=== PATIENT | female | born 1970 | race Caucasian/White ===

== ENCOUNTER 2023-09-19 09:59 | Inpatient (IN) ==
--- NOTE | 2023-09-19 11:41 | XRay Report ---
XR chest 1V not portable HISTORY: 53 years-old Female stroke alert acute stroke like symptoms COMPARISON: None TECHNIQUE: AP view of the chest FINDINGS: Cervical spinal fusion hardware. Bones appear grossly intact. No pneumothorax, pleural effusion or ai rspace consolidation. The cardiomediastinal and hilar silhouettes are within normal limits. IMPRESSION: No acute process of the chest. ACT 112: Negative or not required by law. The above report was generated using voice recognition software. It may contain grammatical, syntax o r spelling errors. Electronically signed by: Helio Yu M.D. 09/19/2023 11:38 AM
--- NOTE | 2023-09-19 11:45 | CT Scan Report ---
CT head/brain wo con CLINICAL HISTORY: 53 years-old Female with Neuro deficit, acute, stroke suspected. Acute stroke like symptoms TECHNIQUE: Multiple axial CT images of the head were obtained without contrast. A dose lowering tech nique was utilized adhering to the principles of ALARA. CT DOSE: 657.02 mGy.cm COMPARISON: None. FINDINGS: No acute intracranial hemorrhage, midline shift, intracranial mass, hydrocephalus, territorial ischem ia or abnormal extra-axial collection. Ill-defined 1.7 cm hypodense focus within the left frontal lob e sapp radiata/posterior limb of the internal capsule on image 15 series 2. Francisco Javier cisterna magna. The calvarium is intact. The paranasal sinuses, mastoid air cells, and middle ear cavities are clear . IMPRESSION: 1. No acute intracranial hemorrhage, midline shift or acute territorial infarct. 2. Ill-defined 1.7 cm hypodense focus within the left frontal lobe sapp radiata/posterior limb of t he internal capsule suggestive of an age-indeterminate infarct. ACT 112: Negative or not required by law. The above report was generated using voice recognition software. It may contain grammatical, syntax o r spelling errors. Electronically signed by: Helio Yu M.D. 09/19/2023 11:43 AM
[2023-09-19] MEDS ORDERED: ASPIRIN CHEW 324 MG PO STA (12:08)
--- NOTE | 2023-09-19 12:15 | Emergency Department Note ---
Impression & Plan Acute CVA (cerebrovascular accident), Right sided weakness, Dizziness, Ambulatory dysfunction ED Provider Note NAME: PENNIE MIRELES AGE: 53 SEX: F : 1970 ARRIVES VIA: Walk-In INFORMANT: [Patient] ED PROVIDER(S): [Eber Bauman MD] CHIEF COMPLAINT: Neuro symptoms HISTORY OF PRESENT ILLNESS: The patient is a 53-year-old female who states that 3 days ago, she went to stand and fell. She felt weak and off balance, primarily her right leg seemed affected. The patient had consumed a white [place] and had a CBD gummy and felt that the symptoms she was experiencing were from what she had ingested. The next day, she felt very similar and her symptoms have persisted over the last few days. No real headache, no head trauma. No fever, chills, cough or congestion. No urinary complaints. Patient feels at times that her right leg drags behind her, she has dropped things with her right hand. The patient has never had a stroke, no history of TIA. She is not on blood thinning agents. PMHx/PSHx/Social Hx: See Below PHYSICAL EXAM: GENERAL: Patient is in no acute distress. HEENT: No acute trauma, normocephalic atraumatic, mucous membranes moist, no nasal congestion. NECK: No stridor, no adenopathy, no meningismus, trachea is midline. LUNGS: Clear to auscultation bilaterally, no wheeze, no rhonchi, breath sounds equal. HEART: Without murmurs gallops or rubs, regular rate and rhythm. ABDOMEN: Soft, nontender, no peritonitis. EXTREMITIES: No cyanosis, full range of motion of all the joints without pain or difficulty. NEUROLOGIC: Oriented x 3. No facial droop or speech slur. Excellent historian. She has no upper extremity drift. No lower extremity drift however, the right leg is weaker when she lifts it off the bed. She has cerebellar dysfunction in the right upper extremity and right lower extremity. SKIN: No jaundice, no diaphoresis. DIFFERENTIAL DIAGNOSIS: Stroke, TIA, medication reaction, electrolyte imbalance, anemia, intracranial bleeding, intracranial mass, among others. EMERGENCY DEPARTMENT PROCEDURES: MEDICAL DECISION MAKING: There is no leukocytosis or concerning anemia. There is a normal platelet count. No coagulopathy. No renal failure or significant electrolyte abnormality. No concerning liver enzyme elevation. Brain CT imaging shows a left frontal stroke thought subacute. On exam, the patient had cerebellar dysfunction in the right upper and lower extremities. Her right leg was weaker compared to her left. No speech slur. Patient was ordered for 324 mg of oral aspirin. The patient had CT angios of the neck and brain, there was no clot or significant stenosis seen. The patient has had a small stroke. The findings on CT imaging explain the neurologic deficits noted on exam. The patient was told the results of her testing, she understands the need for hospitalization. I did speak with the case management team, the on-call hospitalist was consulted. Of note, the patient is not a TNK candidate as her symptoms have been ongoing for around 4 days. Prior/Outside records/notes reviewed: ECG per my interpretation: Indication was possible stroke. The ECG showed a normal sinus rhythm with a rate of 82. There was some nonspecific ST change with some T wave inversions in a few of the high lateral leads. There was no ST elevation, no PVCs. The QTc was 446. Continuous Cardiac Monitoring per my interpretation: An order was placed for continuous cardiac monitoring. The monitor shows a rate of 89 with normal sinus rhythm. Imaging/x-ray results per my interpretation: Chronic Medical/Social conditions affecting care: Care/Management discussed with: Case management, the on-call hospitalist. Level of care consideration(s): After review of the information above and other included data: --I believe the patient requires escalation of care to admission DISPOSITION: Admission Past Med/Surg History Medical History (Updated 09/19/23 @ 14:08 by ALBERTO Shea) Rheumatoid arthritis GERD (gastroesophageal reflux disease) Depression Hypothyroidism HTN (hypertension) Stroke-like symptoms Surgical History (Updated 09/19/23 @ 14:05 by ALBERTO Shea) S/P cubital tunnel release Family History (Updated 09/19/23 @ 14:06 by ALBERTO Shea) Father Diabetes Mother Hypertension Social History Smoking Status: Never smoker Preferred Language: Norwegian Feels Safe at Home: Yes Home Meds Home Medications Medication Instructions Recorded Confirmed duloxetine 20 mg capsule,delayed 20 mg PO BID 09/19/23 09/19/23 release (Cymbalta) levothyroxine 125 mcg tablet 125 mcg PO DAILY 09/19/23 09/19/23 (Synthroid) lisinopril 10 mg tablet 10 mg PO DAILY 09/19/23 09/19/23 omeprazole 20 mg capsule,delayed 20 mg PO DAILY 09/19/23 09/19/23 release vitamin B complex-vit B12 PO 09/19/23 Results & Data (ED) Vital Signs Vital Signs - 24 hr 09/19/23 11:00 09/19/23 12:13 09/19/23 12:15 Temperature 37.0 C Temperature Source Temporal Artery Scan Pulse Rate 89 Pulse Rate [Left Finger] 88 Pulse Rhythm Regular Pulse Strength Normal Respiratory Rate 20 14 Respiratory Effort / Characteristics Non-Labored Spontaneous Non-Labored Respiratory Depth Normal Normal Respiratory Pattern Regular Blood Pressure 147/103 H Blood Pressure [Left Arm] 169/96 H Blood Pressure Mean 117 Blood Pressure Mean [Left Arm] 120 Blood Pressure Position Sitting Pulse Oximetry 100 98 Oxygen Delivery Method Room Air Room Air Room Air Sepsis Recent Fever Within 48 Hours No Sepsis New/Unexplained Change in Mental Status No Sepsis Action Taken by Nursing No Action Required Home Medications Current Medication List: was personally reviewed by me Laboratory Data Attestation: I reviewed the patient's lab results. 09/19/23 11:53 09/19/23 11:53 Lab Results 09/19/23 Range/Units 11:53 WBC 7.62 (4.8-10.8) K/ul RBC 4.54 (4.20-5.40) M/uL Hgb 13.9 (12.0-16.0) g/dl Hct 41.6 (37.0-47.0) % MCV 91.6 (80.0-100.0) fL MCH 30.6 (25.0-34.0) pg MCHC 33.4 (32.0-36.0) g/dL RDW Std Deviation 42.8 (36.4-46.3) fL RDW Coeff of Hayden 12.9 (11.5-14.5) % Plt Count 344 (130-400) K/uL MPV 9.0 L (9.4-12.4) fL PT 10.1 (9.0-12.0) Seconds INR 0.9 (0.9-1.1) APTT 27 (21-31) Seconds PTT Ratio 1.0 Sodium 139 (136-145) mmol/L Potassium 3.8 (3.5-5.1) mmol/L Chloride 102 (98-107) mmol/L Carbon Dioxide 27 (21-32) mmol/L Anion Gap 10 (3-11) BUN 22 (6-23) mg/dl Creatinine 1.11 (0.6-1.2) mg/dl Est Cr Clr Drug Dosing 60.0 ml/min Est GFR ( Amer) 65.7 ml/min Est GFR (Non-Af Amer) 56.7 ml/min BUN/Creatinine Ratio 19.8 (10-20) Glucose 140 H (70-99(Fasting)) mg/dl Calcium 10.2 (8.6-10.3) mg/dl Magnesium 1.9 (1.7-2.4) mg/dl Total Bilirubin 0.7 (0.2-1.0) mg/dl AST 17 (13-39) U/L ALT 17 (7-52) U/L Alkaline Phosphatase 68 (34-104) U/L Total Protein 8.0 (6.0-8.3) gm/dl Albumin 4.7 (3.4-5.0) gm/dl Globulin 3.3 (2.5-4.0) gm/dl Albumin/Globulin Ratio 1.4 (0.9-2) Administered Medications Discontinued Medications Aspirin (Aspirin Chew 324 Mg) 324 mg PO NOW STA Stop: 09/19/23 12:09 Last Admin: 09/19/23 12:12 Dose: 324 mg Documented By: CLAUDE Ioversol (Optiray 320 125ml) 117 ml IV ONCE ONE Stop: 09/19/23 13:54 Last Admin: 09/19/23 13:54 Dose: 117 ml Documented By: BARON Imaging Data Radiologist's Impression: Chest X-Ray 09/19/23 11:05 XR chest 1V not portable HISTORY: 53 years-old Female stroke alert acute stroke like symptoms COMPARISON: None TECHNIQUE: AP view of the chest FINDINGS: Cervical spinal fusion hardware. Bones appear grossly intact. No pneumothorax, pleural effusion or airspace consolidation. The cardiomediastinal and hilar silhouettes are within normal limits. IMPRESSION: No acute process of the chest. ACT 112: Negative or not required by law. The above report was generated using voice recognition software. It may contain grammatical, syntax or spelling errors. Electronically signed by: Helio Yu M.D. 09/19/2023 11:[address] 09/19/23 11:05 CT head/brain wo con CLINICAL HISTORY: 53 years-old Female with Neuro deficit, acute, stroke suspected. Acute stroke like symptoms TECHNIQUE: Multiple axial CT images of the head were obtained without contrast. A dose lowering technique was utilized adhering to the principles of ALARA. CT DOSE: 657.02 mGy.cm COMPARISON: None. FINDINGS: No acute intracranial hemorrhage, midline shift, intracranial mass, hydrocephalus, territorial ischemia or abnormal extra-axial collection. Ill- defined 1.7 cm hypodense focus within the left frontal lobe sapp radiata/posterior limb of the internal capsule on image 15 series 2. Francisco Javier cisterna magna. The calvarium is intact. The paranasal sinuses, mastoid air cells, and middle ear cavities are clear. IMPRESSION: 1. No acute intracranial hemorrhage, midline shift or acute territorial infarct. 2. Ill-defined 1.7 cm hypodense focus within the left frontal lobe sapp radiata/posterior limb of the internal capsule suggestive of an age- indeterminate infarct. ACT 112: Negative or not required by law. The above report was generated using voice recognition software. It may contain grammatical, syntax or spelling errors. Electronically signed by: Helio Yu M.D. 09/19/2023 11:43 AM Head CTA 09/19/23 12:08 CT angio head w con, CT angio neck with con CLINICAL HISTORY: 53 years-old Female with stroke. Acute strokelike symptoms COMPARISON STUDY: Head CT of same day TECHNIQUE: Following the IV administration of 117 cc of Optiray, CT angiogram of the head and neck was performed from the regard to the skull apex. Images are reviewed in the axial, sagittal, and coronal planes. 3-D MIPS images are created and assessed. IV contrast was administered without complication. All measurements were obtained according to NASCET criteria. A dose lowering technique was utilized adhering to the principles of ALARA. CT DOSE: 462.28 mGy.cm FINDINGS: CT ANGIOGRAM OF THE HEAD AND NECK: Three-vessel morphology of the thoracic aortic arch. Patent common and internal carotid arteries. The bilateral anterior and middle cerebral arteries are also patent. The vertebrobasilar system and posterior cerebral arteries are widely patent. There is no aneurysm, high-grade stenosis, or proximal branch occlusion identified. Dural sinuses appear patent. Ill-defined 1.7 cm hypodensity within the left basal ganglia again noted. Degenerative and postoperative changes of the cervical spine. Lung apices appear clear. Unremarkable soft tissues. IMPRESSION: Unremarkable CTA of the head and neck. ACT 112: Negative or not required by law. The above report was generated using voice recognition software. It may contain grammatical, syntax or spelling errors. Electronically signed by: Helio Yu M.D. 09/19/2023 2:26 PM Neck CTA 09/19/23 12:08 CT angio head w con, CT angio neck with con CLINICAL HISTORY: 53 years-old Female with stroke. Acute strokelike symptoms COMPARISON STUDY: Head CT of same day TECHNIQUE: Following the IV administration of 117 cc of Optiray, CT angiogram of the head and neck was performed from the regard to the skull apex. Images are reviewed in the axial, sagittal, and coronal planes. 3-D MIPS images are created and assessed. IV contrast was administered without complication. All measurements were obtained according to NASCET criteria. A dose lowering technique was utilized adhering to the principles of ALARA. CT DOSE: 462.28 mGy.cm FINDINGS: CT ANGIOGRAM OF THE HEAD AND NECK: Three-vessel morphology of the thoracic aortic arch. Patent common and internal carotid arteries. The bilateral anterior and middle cerebral arteries are also patent. The vertebrobasilar system and posterior cerebral arteries are widely patent. There is no aneurysm, high-grade stenosis, or proximal branch occlusion identified. Dural sinuses appear patent. Ill-defined 1.7 cm hypodensity within the left basal ganglia again noted. Degenerative and postoperative changes of the cervical spine. Lung apices appear clear. Unremarkable soft tissues. IMPRESSION: Unremarkable CTA of the head and neck. ACT 112: Negative or not required by law. The above report was generated using voice recognition software. It may contain grammatical, syntax or spelling errors. Electronically signed by: Helio Yu M.D. 09/19/2023 2:26 PM Discharge Plan Visit Data Chief Complaint: Neuro Symptoms/Deficit Stated Complaint: RIGHT SIDE DIFFICULTY WALKING X 3 DAYS ED Provider: Eber Bauman Discharge Problem: Acute CVA (cerebrovascular accident), Right sided weakness, Dizziness, Ambulatory dysfunction Patient Disposition: Admitted As Inpatient Condition: Fair Discharge Instructions Interventions: ED Discharge Assessment Last Done: 09/19/23 14:09
[2023-09-19 12:16] LABS: Hematocrit (blood only) 41.6 % (37.0-47.0); Hemoglobin 13.9 g/dl (12.0-16.0); Mean Corpuscular Hemoglobin 30.6 pg (25.0-34.0); Mean Corpuscular Hgb Conc 33.4 g/dL (32.0-36.0); Mean Corpuscular Volume 91.6 fL (80.0-100.0); Platelet Count 344 K/uL (130-400); RDW Coefficient of Variation 12.9 % (11.5-14.5); RDW Standard Deviation 42.8 fL (36.4-46.3); Red Blood Count 4.54 M/uL (4.20-5.40); White Blood Count 7.62 K/ul (4.8-10.8)
[2023-09-19 12:30] LABS: Albumin Globulin Ratio 1.4 (0.9-2); Albumin Level 4.7 gm/dl (3.4-5.0); BUN Creatinine Ratio 19.8 (10-20); Bilirubin,Total 0.7 mg/dl (0.2-1.0); Calcium 10.2 mg/dl (8.6-10.3); Est GFR (African American) 65.7 ml/min; Est GFR (Non-African American) 56.7 ml/min; Globulin 3.3 gm/dl (2.5-4.0); Magnesium 1.9 mg/dl (1.7-2.4); Potassium 3.8 mmol/L (3.5-5.1)
[2023-09-19] MEDS ORDERED: ONDANSETRON INJ 2 MG/ML 2 ML VIAL IV PRN (12:37)
[2023-09-19] MEDS ORDERED: ALUMINUM/MAGNESIUM SUSP 30 ML UDC PO PRN (12:37)
[2023-09-19] MEDS ORDERED: POLYETHYLENE (MIRALAX) 17 GM PACK PO PRN (12:37)
[2023-09-19] MEDS ORDERED: MAGNESIUM HYDROXIDE SUSP 30 ML UDC PO PRN (12:37)
--- NOTE | 2023-09-19 12:41 | History & Physical Report ---
Date of Service September 19, 2023 Assessment & Plan (1) Stroke-like symptoms: (2) HTN (hypertension): (3) Hypothyroidism: (4) Depression: (5) GERD (gastroesophageal reflux disease): (6) Rheumatoid arthritis: Plan Ms. Miller is a 53 year old female that presented to the ED today with R sided weakness. Last known well 09/160. Reports she took a CBD gummy (not unusual for her) and went to stand and could not 'find her feet' went to bed thinking it was the gummy. She went to bed and then woke again on 09/17 with the same symptoms and reports having to hold herself up to walk. Her reports that her right foot was dragging. No facial droop or speech slur. no upper extremity drift. No lower extremity drift. R leg weaker when comparing to left indicating cerebellar dysfunction. Recently Dx HTN as an outpatient and started on Lisinopril 10 mg a few months ago. She receives all of her care with the [facility] system in [facility]. No history of CVA or TIA. Additional PMH includes hypothyroidism, HTN, depression, rheumatoid arthritis, GERD, cubital tunnel surgery, and right carpal tunnel. Head CT: Ill-defined 1.7 cm hypodense focus within the left frontal lobe sapp radiata/posterior limb of the internal capsule suggestive of an age-indeterminate infarct. No Leukocytosis, no lab abnormalities. She was loaded with ASA 324 here in the ED. No known family history of stroke. Father known DM2, mother with known HTN. denies tobacco, alcohol use or recreational drug use. She did have a medical marijuana card for rheumatoid arthritis, but it has and she only used it a few times. Suspect patient had an acute CVA. Will continue imaging work up with head/neck CTA, MRI brain without con, ECHO, lab work up including TSH, A1C, Fasting lipid panel, homocysteine levels, PT/OT/ST, baby aspirin daily, high dose statin, hold anti-HTN for now for permissive HTN and Neurology consultation. Strokelike symptoms: Acute Head CT: Ill-defined 1.7 cm hypodense focus within the left frontal lobe sapp radiata/posterior limb of the internal capsule suggestive of an age- indeterminate infarct head/neck CTA and Brain MRI without con pending Not a TNK candidate due to timing Obtain ECHO Permissive HTN Check Fasting lipids and A1C in AM Check Homocysteine and TSH levels Q4 glucose checks ASA 324 given in ED; continue baby ASA daily NPO until passed dysphagia screening Neurology consultation PT/OT/ST HTN: Chronic Just diagnosed a few months ago Started on Lisinopril 10 mg daily; hold for now due to stroke symptoms Hypothyroidism: Chronic stable Takes Synthroid; continue Check TSH Depression: Chronic Takes Cymbalta; continue Rheumatoid arthritis: Chronic Follows with rheumatology outpatient and [place] [facility] Does not take any DMARDs Takes vitamin D and vitamin B12; continue GERD: Chronic Takes Omeprazole;continue Was informed she may have barrets esophagus Disposition: PCP: Dr. Kovacs within [facility] system Code status: Full code VTE Prophylaxis: Teds and SCDs for now I spent a total of 87 minutes coordinating, documenting, and providing care for this patient excluding time spent in the performance of separately billed services. All of the aforementioned completed while collaborating with the assigned attending physician for a full treatment plan. Please see their addendum for further details. History of Present Illness Chief Complaint: stroke like symptoms Primary Care Provider: NO PCP Ms. Miller is a 53 year old female that presented to the ED today with R sided weakness. Last known well 09/16 2200. Reports she took a CBD gummy (not unusual for her) and went to stand and could not 'find her feet' went to bed thinking it was the gummy. She went to bed and then woke again on 09/17 with the same symptoms and reports having to hold herself up to walk. Her reports that her right foot was dragging. No facial droop or speech slur. no upper extremity drift. No lower extremity drift. R leg weaker when comparing to left indicating cerebellar dysfunction. Recently Dx HTN as an outpatient and started on Lisinopril 10 mg a few months ago. She receives all of her care with the [facility] system in [facility]. No history of CVA or TIA. Additional PMH includes hypothyroidism, HTN, depression, rheumatoid arthritis, GERD, cubital tunnel surgery, and right carpal tunnel. Head CT: Ill-defined 1.7 cm hypodense focus within the left frontal lobe sapp radiata/posterior limb of the internal capsule suggestive of an age- indeterminate infarct. No Leukocytosis, no lab abnormalities. She was loaded with ASA 324 here in the ED. No known family history of stroke. Father known DM2, mother with known HTN. denies tobacco, alcohol use or recreational drug use. She did have a medical marijuana card for rheumatoid arthritis, but it has and she only used it a few times. Suspect patient had an acute CVA. Will continue imaging work up with head/neck CTA, MRI brain without con, ECHO, lab work up including TSH, A1C, Fasting lipid panel, homocysteine levels, PT/OT/ST, baby aspirin daily, high dose statin and Neurology consultation. Patient will be admitted for further evaluation and management. Please see A/P for further details. Home Medications Medication Instructions Recorded Confirmed Type duloxetine 20 mg capsule,delayed 20 mg PO BID 09/19/23 09/19/23 History release (Cymbalta) levothyroxine 125 mcg tablet 125 mcg PO DAILY 09/19/23 09/19/23 History (Synthroid) lisinopril 10 mg tablet 10 mg PO DAILY 09/19/23 09/19/23 History omeprazole 20 mg capsule,delayed 20 mg PO DAILY 09/19/23 09/19/23 History release vitamin B complex-vit B12 PO 09/19/23 History Past Med/Surg History Medical History (Updated 09/19/23 @ 14:08 by ALBERTO Shea) Rheumatoid arthritis GERD (gastroesophageal reflux disease) Depression Hypothyroidism HTN (hypertension) Stroke-like symptoms Surgical History (Updated 09/19/23 @ 14:05 by ALBERTO Shea) S/P cubital tunnel release Family History (Updated 09/19/23 @ 14:06 by ALBERTO Shea) Father Diabetes Mother Hypertension Social History Smoking Status: Never smoker Preferred Language: Vincentian Feels Safe at Home: Yes Review of Systems Review of Systems: Neuro: (-) Falls, trauma, slurred speech. R leg weakness HEENT: (-) VALERIO, dizziness, dysphagia, visual or auditory changes CV: (-) CP, palpitations, swelling Resp: (-) SOB GI: (-) appetite changes, N/V/D, bowel changes : (-) urinary changes Skin: (-) rashes Psych: (-) anxiety, depression Physical Exam Physical Exam: Neuro: AAOx4, PERRLA, no aphagia, memory changes, CNII-XII grossly intact NO facial droop or slurred speech HEENT: head normocephalic, moist mucus membranes CV: S1/S2, (-) M/G/R, (-) edema, cap refill < 3 seconds Resp: Lungs CTA in all clement. On RA GI: Abdomen S/NT/ND, Ax4 bowel sounds, (-) CVA tenderness Musculoskeletal: 5/5 B/L UE strength, 5/5 B/L LE strength. R leg weak with straight leg raises. cerebellar dysfunction with r leg dragging with walking Skin: (-) rashes , (-) erythema. Psych: euthymic mood Results & Data Results & Data Vital Signs (Past 12 Hours) Vital Signs Temp Pulse Pulse Resp BP BP Pulse Ox 09/19/23 12:15 88 14 169/96 H 98 09/19/23 12:13 09/19/23 11:00 37.0 C 89 20 147/103 H 100 O2 Del Method 09/19/23 12:15 Room Air 09/19/23 12:13 Room Air 09/19/23 11:00 Room Air Laboratory Results Short CBC 09/19/23 Range/Units 11:53 WBC 7.62 (4.8-10.8) K/ul Hgb 13.9 (12.0-16.0) g/dl Hct 41.6 (37.0-47.0) % Plt Count 344 (130-400) K/uL BMP 09/19/23 11:53 Sodium 139 Potassium 3.8 Chloride 102 Carbon Dioxide 27 BUN 22 Creatinine 1.11 Glucose 140 H Calcium 10.2 Liver Function 09/19/23 Range/Units 11:53 Total Bilirubin 0.7 (0.2-1.0) mg/dl AST 17 (13-39) U/L ALT 17 (7-52) U/L Alkaline Phosphatase 68 (34-104) U/L Albumin 4.7 (3.4-5.0) gm/dl Diagnostic Findings Chest X-Ray 09/19/23 11:05 XR chest 1V not portable HISTORY: 53 years-old Female stroke alert acute stroke like symptoms COMPARISON: None TECHNIQUE: AP view of the chest FINDINGS: Cervical spinal fusion hardware. Bones appear grossly intact. No pneumothorax, pleural effusion or airspace consolidation. The cardiomediastinal and hilar silhouettes are within normal limits. IMPRESSION: No acute process of the chest. ACT 112: Negative or not required by law. The above report was generated using voice recognition software. It may contain grammatical, syntax or spelling errors. Electronically signed by: Helio Yu M.D. 09/19/2023 11:[address] 09/19/23 11:05 CT head/brain wo con CLINICAL HISTORY: 53 years-old Female with Neuro deficit, acute, stroke suspected. Acute stroke like symptoms TECHNIQUE: Multiple axial CT images of the head were obtained without contrast. A dose lowering technique was utilized adhering to the principles of ALARA. CT DOSE: 657.02 mGy.cm COMPARISON: None. FINDINGS: No acute intracranial hemorrhage, midline shift, intracranial mass, hydrocephalus, territorial ischemia or abnormal extra-axial collection. Ill- defined 1.7 cm hypodense focus within the left frontal lobe sapp radiata/posterior limb of the internal capsule on image 15 series 2. Francisco Javier c isterna magna. The calvarium is intact. The paranasal sinuses, mastoid air cells, and middle ear cavities are clear. IMPRESSION: 1. No acute intracranial hemorrhage, midline shift or acute territorial infarct. 2. Ill-defined 1.7 cm hypodense focus within the left frontal lobe sapp radiata/posterior limb of the internal capsule suggestive of an age- indeterminate infarct. ACT 112: Negative or not required by law. The above report was generated using voice recognition software. It may contain grammatical, syntax or spelling errors. Electronically signed by: Helio Yu M.D. 09/19/2023 11:43 AM Code Status & VTE Plan Code Status Full Code in the event of cardiac or respiratory arrest VTE Prophylaxis Plan VTE Prophylaxis will be ordered: Yes Supervising Physician Co-Signing Physician Notes 53-year-old lady presented with right-sided weakness, last well know on 09/[address] head with acute to subacute CVA, echo/MRI brain sent. Neurology consult. PT/OT/speech eval. Hold blood pressure medications today, permissive hypertension with as needed blood pressure medication for SBP greater than 180 mmHg. Lipid profile in AM. Was loaded with aspirin, continue baby aspirin. On exam patient had equal strength bilateral lower extremities but she reports being weak on the right side with activity. Patient was undergoing echo at the time of my bedside exam. Will follow PT/OT eval. Await neurology eval and recommendation. On exam: GENERAL: Alert and oriented x3. NAD, on RA. HEENT: No pallor, no icterus. Pupils equal, round and reactive to light. Oral mucosa moist. NECK: No JVD, no neck masses. HEART: S1 and S2 heard. Regular rate and rhythm. No murmur, no gallop. RESPIRATORY SYSTEM: Normal AP diameter. No accessory muscle use. No wheezing, no crackles. ABDOMEN: Soft, bowel sounds present, nontender, no distention. CENTRAL NERVOUS SYSTEM: No facial droop. Speech is clear. Obeys simple commands. Moves extremities. Extremities equal and symmetrical strength on exam. EXTREMITIES: No edema, no erythema seen. I have seen and examined the patient and have discussed the case with the provider above. I agree with the assessment and plan as stated.
[2023-09-19] MEDS ORDERED: PHARMACIST DISCHARGE MED REC CONSULT PRN (12:42)
[2023-09-19 12:43] LABS: INR 0.9 (0.9-1.1); Partial Thromboplastin Time 27 Seconds (21-31); Prothrombin Time 10.1 Seconds (9.0-12.0)
[2023-09-19] MEDS ORDERED: OPTIRAY 320 125ml IV ONE (13:53)
--- NOTE | 2023-09-19 14:29 | CT Scan Report ---
CT angio head w con, CT angio neck with con CLINICAL HISTORY: 53 years-old Female with stroke. Acute strokelike symptoms COMPARISON STUDY: Head CT of same day TECHNIQUE: Following the IV administration of 117 cc of Optiray, CT angiogram of the head and neck wa s performed from the regard to the skull apex. Images are reviewed in the axial, sagittal, and sapp l planes. 3-D MIPS images are created and assessed. IV contrast was administered without complication . All measurements were obtained according to NASCET criteria. A dose lowering technique was utilized adhering to the principles of ALARA. CT DOSE: 462.28 mGy.cm FINDINGS: CT ANGIOGRAM OF THE HEAD AND NECK: Three-vessel morphology of the thoracic aortic arch. Patent common and internal carotid arteries. The bilateral anterior and middle cerebral arteries are also patent. The vertebrobasilar system and post erior cerebral arteries are widely patent. There is no aneurysm, high-grade stenosis, or proximal bra nch occlusion identified. Dural sinuses appear patent. Ill-defined 1.7 cm hypodensity within the left basal ganglia again noted. Degenerative and postoperative changes of the cervical spine. Lung apices appear clear. Unremarkable soft tissues. IMPRESSION: Unremarkable CTA of the head and neck. ACT 112: Negative or not required by law. The above report was generated using voice recognition software. It may contain grammatical, syntax o r spelling errors. Electronically signed by: Helio Yu M.D. 09/19/2023 2:26 PM
[2023-09-19] MEDS ORDERED: LABETALOL HCL IV 5 MG/ML 20ML IV PRN (15:28)
[2023-09-19 15:40] LABS: Thyroid Stimulating Hormone 2.61 uIu/ml (0.300-4.500)
--- NOTE | 2023-09-19 17:27 | Magnetic Resonance Report ---
MR brain wo con HISTORY: 53 years-old Female acute cva acute stroke like symptoms COMPARISON: Head CT of same day TECHNIQUE: Multiplanar multisequence MRI of the brain was obtained without the use of IV contrast. FINDINGS: 1.3 cm acute left thalamic infarct with mild cytotoxic edema. No acute or subacute territorial infarc t, acute intracranial hemorrhage, midline shift or abnormal extra-axial fluid collection. Francisco Javier cister na magna. Mild T2/FLAIR hyperintense foci throughout the white matter are nonspecific and may represe nt chronic microvascular ischemic disease. Cerebral venous sinuses and major arterial flow voids appe ar patent. Skull, orbits and soft tissues are unremarkable. No pathologic blooming artifact. IMPRESSION: Acute 1.2 cm left thalamic infarct. ACT 112: Negative or not required by law. The above report was generated using voice recognition software. It may contain grammatical, syntax o r spelling errors. Electronically signed by: Helio Yu M.D. 09/19/2023 5:25 PM
[2023-09-19] MEDS: ATORVASTATIN 40 MG TAB PO SCH (17:57)
[2023-09-19] MEDS ORDERED: MELATONIN 3 MG TAB PO PRN (18:06)
[2023-09-19] MEDS ORDERED: diphenhydrAMINE Capsule 25 MG CAP PO ONE (20:19)
[2023-09-19 20:31] LABS: iSTAT Creatinine 1.2 mg/dl (0.6-1.3); iSTAT Hemoglobin 14.6 g/dl (12.0-16.0); iSTAT Ionized Calcium 1.17 mmol/l (1.12-1.32); iSTAT Potassium 3.8 mmol/L (3.3-5.0)
[2023-09-19] MEDS: DULoxetine HCL 20 MG CAP PO SCH (21:48)
[2023-09-19] MEDS: ACETAMINOPHEN 325 MG TAB PO PRN (21:49)
[2023-09-20] MEDS ORDERED: LEVOTHYROXINE SODIUM 125 MCG TABLET PO SCH (06:30)
[2023-09-20 07:37] LABS: Basophils # (auto) 0.04 K/uL (0.00-0.20); Basophils % (auto) 0.6 %; Eosinophils # (auto) 0.16 K/uL (0.00-0.50); Eosinophils % (auto) 2.2 %; Hemoglobin 13.7 g/dl (12.0-16.0); Immature Granulocytes # (auto) 0.04 K/uL (0.01-0.20); Immature Granulocytes % (auto) 0.6 %; Lymphocytes # (auto) 2.15 K/uL (1.20-3.40); Lymphocytes % (auto) 30.1 %; Mean Corpuscular Hgb Conc 34.3 g/dL (32.0-36.0); Mean Corpuscular Volume 90.5 fL (80.0-100.0); Mean Platelet Volume 9.1 fL (9.4-12.4); Monocytes # (auto) 0.69 K/uL (0.11-0.59); Monocytes % (auto) 9.7 %; Neutrophils # (auto) 4.07 K/uL (1.40-6.50); Neutrophils % (auto) 56.8 %; Platelet Count 334 K/uL (130-400); RDW Coefficient of Variation 13.2 % (11.5-14.5); RDW Standard Deviation 43.2 fL (36.4-46.3); Red Blood Count 4.42 M/uL (4.20-5.40); White Blood Count 7.15 K/ul (4.8-10.8)
[2023-09-20 07:54] LABS: Albumin Globulin Ratio 1.4 (0.9-2); Albumin Level 4.5 gm/dl (3.4-5.0); BUN Creatinine Ratio 18.8 (10-20); Bilirubin,Total 0.9 mg/dl (0.2-1.0); Calcium 10.4 mg/dl (8.6-10.3); Chol HDL Ratio 5.6 (0-5); Creatinine Clr Calc Pharmacy 56.6 ml/min; Est GFR (African American) 61.6 ml/min; Est GFR (Non-African American) 53.2 ml/min; Globulin 3.2 gm/dl (2.5-4.0); Magnesium 2.1 mg/dl (1.7-2.4); Phosphorus 4.7 mg/dl (2.5-4.9); Potassium 4.3 mmol/L (3.5-5.1); Total Protein 7.7 gm/dl (6.0-8.3)
[2023-09-20 08:34] LABS: Estimated Average Glucose 120 mg/dl; Hemoglobin A1C 5.8 % (4.5-5.6)
[2023-09-20] MEDS: DULoxetine HCL 20 MG CAP PO SCH (08:39)
[2023-09-20] MEDS: ATORVASTATIN 40 MG TAB PO SCH (08:39)
[2023-09-20] MEDS ORDERED: lisinopril 10 MG TAB PO SCH (09:00)
[2023-09-20] MEDS ORDERED: PANTOprazole 40 MG TAB PO SCH (09:00)
[2023-09-20] MEDS ORDERED: ASPIRIN 81 MG ECTAB PO SCH (09:00)
--- NOTE | 2023-09-20 09:08 | Electrocardiogram Report ---
Test Reason : Blood Pressure : / mmHG Vent. Rate : 082 BPM Atrial Rate : 082 BPM P-R Int : 152 ms QRS Dur : 072 ms QT Int : 382 ms P-R-T Axes : 062 019 094 degrees QTc Int : 446 ms Normal sinus rhythm Diffuse Nonspecific ST and T wave abnormality Abnormal ECG No previous ECGs available Confirmed by Husam Miranda ([id number]) on 09/20/2023 9:08:33 AM Referred By: REFERRED SELF Confirmed By:Husam Miranda
--- NOTE | 2023-09-20 11:44 | Neurology Consultation ---
Date of Consultation September 20, 2023 Assessment & Plan (1) Acute CVA (cerebrovascular accident): Acute left thalamic stroke- etiology likely HTN Recommend continue stroke workup: Echocardiogram as part of complete stroke workup Continue frequent neurological assessments Obtain stat CT brain without contrast for any acute neurological decline Continue to monitor/control blood pressure & blood glucose Metabolic workup should include hgbA1c, fasting lipids, homocysteine, TSH, D Dimer Recommend DAPT for at least 3 weeks, follow up outpatient neurology Recommend high dose statin therapy Ok from neurology perspective for VTE prophylaxis PT/OT/SLT to eval and treat Recommend positive airway pressure mask at times of sleep Recommend continued stroke risk factor modifications (2) Sleep apnea: CPAP at HS (3) HTN (hypertension): Continue to monitor/control blood pressure Telehealth Consultation Telehealth Information Telehealth Information: I performed this visit using a real-time telehealth connection between my location and the patients location ([facility]). After connecting through interactive tele-video, patient was identified by name and date of and/or wristband check.Patient (or authorized healthcare financial services sales representative) was informed that this was a telemedicine visit and it was being conducted confidentially over secure lines. My office door was closed and no one else was present in the room with me.Patient (or authorized healthcare financial services sales representative) provided consent to proceed with the visit, expressed an unde rstanding of privacy and security of the telemedicine visit, and gave permission to have a hospital financial services sales representative in the room in order to assist with the visit and to conduct portions of the visit, as needed. I informed the patient (or authorized healthcare financial services sales representative) that I reviewed their record and presented the opportunity for them to ask any questions regarding the visit today. The patient agreed to participate. History of Present Illness Reason for Consultation: Stroke Requesting Physician: Dr. Andressa Man Attending Physician: Andressa Man MD History of Present Illness 53yo female presented with report of right hemiparesis. Presented days after symptoms onset therefor not considered IV thrombolytic candidate. She has a history of HTN, GERD, hypothyroidism and suspected rheumatoid arthritis as she reports she began seeing a subject scientific research recently and also notes she has has a sleep study and reported told she has sleep apnea but has not been fitted for a CPAP yet. She has demonstrated vastly elevated BP on arrival. She has undergone emergent stroke imaging including CT brain without contrast personally reviewed revealing no overt evidence of hemorrhage with notable concern for possible ischemic stroke correlated to hypodensity seen within the left thalamus . CT angiographic studies of head and neck reveal no overt evidence of large vessel occlusion or significant/flow limiting stenosis. She has undergone MRI brain revealing acute restricted diffusion left deep subcortical region. Patient able to answer all questions and follow commands RN present for consultation Patient Mother via cell phone- all questions answered No reported cephalgia or cervicalgia Denies chest pain/palpitations or shortness of breath No reported changes in vision hearing dizziness syncope seizure like activity or paresthesia Denies recent fevers chills nausea vomiting changes in bowels or bladder Denies recent medication changes, recent illness or sick contacts, no reported recent travel Allergies Allergy/AdvReac Type Severity Reaction Status Date / Time onion Allergy Abdominal Verified 09/19/23 20:04 Pain Home Medications Medication Instructions Recorded Confirmed Type duloxetine 20 mg capsule,delayed 20 mg PO BID 09/19/23 09/19/23 History release (Cymbalta) levothyroxine 125 mcg tablet 125 mcg PO DAILY 09/19/23 09/19/23 History (Synthroid) lisinopril 10 mg tablet 10 mg PO DAILY 09/19/23 09/19/23 History omeprazole 20 mg capsule,delayed 20 mg PO DAILY 09/19/23 09/19/23 History release vitamin B complex-vit B12 PO 09/19/23 History Patient History Medical History (Updated 09/20/23 @ 11:40 by Husam Boyer DO) Rheumatoid arthritis GERD (gastroesophageal reflux disease) Depression Hypothyroidism HTN (hypertension) Stroke-like symptoms Surgical History (Updated 09/19/23 @ 14:05 by ALBERTO Shea) S/P cubital tunnel release Family History (Updated 09/19/23 @ 14:06 by ALBERTO Shea) Father Diabetes Mother Hypertension Social History Smoking Status: Never smoker Hx Alcohol Use: Yes Alcohol type: beer, wine and hard liquor Hx Substance Use: No Preferred Language: Omani Communication Ability: Effective Sales Professional Required: No Beliefs That Will Affect Care: None Current Living Situation: Spouse Other Information That Helps Us Care for You: No Feels Safe at Home: Yes Safety Concerns: Feels Safe At This Time Assistive Devices: None Physical Exam Neurological Examination: Mental Status: Awake and alert. Oriented to person, place, and time. Fluency naming repetition and comprehension appear grossly intact. Affect remains appropriate. CN testing: I: Denies changes in ability to smell II:Reports no changes in visual acuity III/IV/: No evidence of gaze preference, hippus, nystagmus or roving eye movements V: Facial sensation reportedly grossly intact to light touch bilaterally VII: Facial movements appear without evidence of asymmetry VIII: Hearing appears grossly intact to loud voice bilaterally IX/X: Palate appears to elevate symmetrically XI: Shoulder shrug appears symmetric/ grossly intact bilaterally XII: Tongue protrudes midline without evidence of biting Motor exam: Mild RUE weakness reported - no notable drift Sensory: Reports right arm feels heavy Coordination: No apparent evidence of dysmetria or dysdiadochokinesia Reflexes: Deferred Gait: Deferred Results & Data Vital Signs (Past 12 Hours) Vital Signs Temp Pulse Pulse Resp BP Pulse Ox O2 Del Method 09/20/23 09:00 77 09/20/23 08:50 36.9 C 98 H 16 152/95 H 96 Room Air 09/20/23 08:38 148/98 H 09/20/23 03:41 38.7 C H 85 17 186/99 H 98 Room Air Laboratory Results Abnormal lab results 09/19/23 09/19/23 09/19/23 Range/Units 11:53 12:03 14:51 MPV 9.0 L (9.4-12.4) fL Benson # (Auto) (0.11-0.59) K/uL POC BUN 21 H (7-18) mg/dl Glucose 140 H 114 H (70-99(Fasting)) mg/dl POC Glucose (other) 141 H (70-99) mg/dl Hemoglobin A1c (4.5-5.6) % Calcium (8.6-10.3) mg/dl Triglycerides (0-150) mg/dl Cholesterol (0-200) mg/dl VLDL Cholesterol, Calc (0-30) mg/dl Cholesterol/HDL Ratio (0-5) 09/19/23 09/20/23 Range/Units 19:46 06:45 MPV 9.1 L (9.4-12.4) fL Benson # (Auto) 0.69 H (0.11-0.59) K/uL POC BUN (7-18) mg/dl Glucose 106 H 118 H (70-99(Fasting)) mg/dl POC Glucose (other) (70-99) mg/dl Hemoglobin A1c 5.8 H (4.5-5.6) % Calcium 10.4 H (8.6-10.3) mg/dl Triglycerides 251 H (0-150) mg/dl Cholesterol 379 H (0-200) mg/dl VLDL Cholesterol, Calc 50 H (0-30) mg/dl Cholesterol/HDL Ratio 5.6 H (0-5) Diagnostic Findings Chest X-Ray 09/19/23 11:05 XR chest 1V not portable HISTORY: 53 years-old Female stroke alert acute stroke like symptoms COMPARISON: None TECHNIQUE: AP view of the chest FINDINGS: Cervical spinal fusion hardware. Bones appear grossly intact. No pneumothorax, pleural effusion or airspace consolidation. The cardiomediastinal and hilar silhouettes are within normal limits. IMPRESSION: No acute process of the chest. ACT 112: Negative or not required by law. The above report was generated using voice recognition software. It may contain grammatical, syntax or spelling errors. Electronically signed by: Helio Yu M.D. 09/19/2023 11:[address] 09/19/23 11:05 CT head/brain wo con CLINICAL HISTORY: 53 years-old Female with Neuro deficit, acute, stroke suspected. Acute stroke like symptoms TECHNIQUE: Multiple axial CT images of the head were obtained without contrast. A dose lowering technique was utilized adhering to the principles of ALARA. CT DOSE: 657.02 mGy.cm COMPARISON: None. FINDINGS: No acute intracranial hemorrhage, midline shift, intracranial mass, hydrocephalus, territorial ischemia or abnormal extra-axial collection. Ill- defined 1.7 cm hypodense focus within the left frontal lobe sapp radiata/posterior limb of the internal capsule on image 15 series 2. Francisco Javier cisterna magna. The calvarium is intact. The paranasal sinuses, mastoid air cells, and middle ear cavities are clear. IMPRESSION: 1. No acute intracranial hemorrhage, midline shift or acute territorial infarct. 2. Ill-defined 1.7 cm hypodense focus within the left frontal lobe sapp radiata/posterior limb of the internal capsule suggestive of an age- indeterminate infarct. ACT 112: Negative or not required by law. The above report was generated using voice recognition software. It may contain grammatical, syntax or spelling errors. Electronically signed by: Helio Yu M.D. 09/19/2023 11:43 AM Head CTA 09/19/23 12:08 CT angio head w con, CT angio neck with con CLINICAL HISTORY: 53 years-old Female with stroke. Acute strokelike symptoms COMPARISON STUDY: Head CT of same day TECHNIQUE: Following the IV administration of 117 cc of Optiray, CT angiogram of the head and neck was performed from the regard to the skull apex. Images are reviewed in the axial, sagittal, and coronal planes. 3-D MIPS images are created and assessed. IV contrast was administered without complication. All measurements were obtained according to NASCET criteria. A dose lowering technique was utilized adhering to the principles of ALARA. CT DOSE: 462.28 mGy.cm FINDINGS: CT ANGIOGRAM OF THE HEAD AND NECK: Three-vessel morphology of the thoracic aortic arch. Patent common and internal carotid arteries. The bilateral anterior and middle cerebral arteries are also patent. The vertebrobasilar system and posterior cerebral arteries are widely patent. There is no aneurysm, high-grade stenosis, or proximal branch occlusion identified. Dural sinuses appear patent. Ill-defined 1.7 cm hypodensity within the left basal ganglia again noted. Degenerative and postoperative changes of the cervical spine. Lung apices appear clear. Unremarkable soft tissues. IMPRESSION: Unremarkable CTA of the head and neck. ACT 112: Negative or not required by law. The above report was generated using voice recognition software. It may contain grammatical, syntax or spelling errors. Electronically signed by: Helio Yu M.D. 09/19/2023 2:26 PM Neck CTA 09/19/23 12:08 CT angio head w con, CT angio neck with con CLINICAL HISTORY: 53 years-old Female with stroke. Acute strokelike symptoms COMPARISON STUDY: Head CT of same day TECHNIQUE: Following the IV administration of 117 cc of Optiray, CT angiogram of the head and neck was performed from the regard to the skull apex. Images are reviewed in the axial, sagittal, and coronal planes. 3-D MIPS images are created and assessed. IV contrast was administered without complication. All measurements were obtained according to NASCET criteria. A dose lowering technique was utilized adhering to the principles of ALARA. CT DOSE: 462.28 mGy.cm FINDINGS: CT ANGIOGRAM OF THE HEAD AND NECK: Three-vessel morphology of the thoracic aortic arch. Patent common and internal carotid arteries. The bilateral anterior and middle cerebral arteries are also patent. The vertebrobasilar system and posterior cerebral arteries are widely patent. There is no aneurysm, high-grade stenosis, or proximal branch occlusion identified. Dural sinuses appear patent. Ill-defined 1.7 cm hypodensity within the left basal ganglia again noted. Degenerative and postoperative changes of the cervical spine. Lung apices appear clear. Unremarkable soft tissues. IMPRESSION: Unremarkable CTA of the head and neck. ACT 112: Negative or not required by law. The above report was generated using voice recognition software. It may contain grammatical, syntax or spelling errors. Electronically signed by: Helio Yu M.D. 09/19/2023 2:26 PM Brain MRI 09/19/23 13:49 MR brain wo con HISTORY: 53 years-old Female acute cva acute stroke like symptoms COMPARISON: Head CT of same day TECHNIQUE: Multiplanar multisequence MRI of the brain was obtained without the use of IV contrast. FINDINGS: 1.3 cm acute left thalamic infarct with mild cytotoxic edema. No acute or subacute territorial infarct, acute intracranial hemorrhage, midline shift or abnormal extra-axial fluid collection. Francisco Javier cisterna magna. Mild T2/FLAIR hyperintense foci throughout the white matter are nonspecific and may represent chronic microvascular ischemic disease. Cerebral venous sinuses and major arterial flow voids appear patent. Skull, orbits and soft tissues are un remarkable. No pathologic blooming artifact. IMPRESSION: Acute 1.2 cm left thalamic infarct. ACT 112: Negative or not required by law. The above report was generated using voice recognition software. It may contain grammatical, syntax or spelling errors. Electronically signed by: Helio Yu M.D. 09/19/2023 5:25 PM Medications Administered Home Medications Medication Instructions Recorded Confirmed Last Taken duloxetine 20 mg capsule,delayed 20 mg PO BID 09/19/23 09/19/23 Unknown release (Cymbalta) levothyroxine 125 mcg tablet 125 mcg PO DAILY 09/19/23 09/19/23 Unknown (Synthroid) lisinopril 10 mg tablet 10 mg PO DAILY 09/19/23 09/19/23 Unknown omeprazole 20 mg capsule,delayed 20 mg PO DAILY 09/19/23 09/19/23 Unknown release vitamin B complex-vit B12 PO 09/19/23 Unknown Active Medications Generic Name Dose Route Start Last Admin Trade Name Jarek PRN Reason Stop Dose Admin Acetaminophen 650 mg 09/19/23 12:37 09/19/23 21:49 Acetaminophen 325 Mg Tab PO 10/19/23 12:36 650 mg Q4H PRN Administration Pain or Fever Aspirin 81 mg 09/20/23 09:00 09/20/23 08:39 Aspirin 81 Mg Ectab PO 10/20/23 08:59 81 mg DAILY LEVY Administration Atorvastatin Calcium 40 mg 09/19/23 16:00 09/20/23 08:39 Atorvastatin 40 Mg Tab PO 10/19/23 15:59 40 mg QAM LEVY Administration Duloxetine HCl 20 mg 09/19/23 21:00 09/20/23 08:39 Duloxetine Hcl 20 Mg Cap PO 10/19/23 20:59 20 mg BID LEVY Administration Levothyroxine Sodium 125 mcg 09/20/23 06:30 09/20/23 06:46 Levothyroxine Sodium 125 Mcg Tablet PO 10/20/23 06:29 125 mcg DAILYBB LEVY Administration Lisinopril 10 mg 09/20/23 09:00 09/20/23 08:39 Lisinopril 10 Mg Tab PO 10/20/23 08:59 10 mg DAILY LEVY Administration Melatonin 3 mg 09/19/23 18:06 09/19/23 21:48 Melatonin 3 Mg Tab PO 10/19/23 18:05 3 mg HS PRN Administration Sleep Pantoprazole Sodium 40 mg 09/20/23 09:00 09/20/23 08:39 Pantoprazole 40 Mg Tab PO 10/20/23 08:59 40 mg DAILY LEVY Administration
[2023-09-20] MEDS: ACETAMINOPHEN 325 MG TAB PO PRN (11:55)
[2023-09-20] MEDS ORDERED: CLOPIDOGREL BISULFATE 75 MG TAB PO ONE (12:45)
--- NOTE | 2023-09-20 14:52 | Hospitalist Progress Note ---
Date of Service September 20, 2023 Assessment & Plan (1) Stroke-like symptoms: (2) HTN (hypertension): (3) Hypothyroidism: (4) Depression: (5) GERD (gastroesophageal reflux disease): (6) Rheumatoid arthritis: Plan 53 year old female that presented to the ED 09/19 with R sided weakness. Last known well 09/16 2200hrs. Reports she took a CBD gummy (not unusual for her) and went to stand and could not 'find her feet' went to bed thinking it was the gummy. She went to bed and then woke again on 09/17 with the same symptoms and reports having to hold herself up to walk. Her reported that her right foot was dragging. No facial droop or speech slur. Recently Dx HTN as an outpatient and started on Lisinopril 10 mg a few months ago. She receives all of her care with the [facility] in [facility]. No history of CVA or TIA. Additional PMH includes hypothyroidism, HTN, depression, rheumatoid arthritis, GERD, cubital tunnel surgery, and right carpal tunnel. No known family history of stroke. Father known DM2, mother with known HTN. denies tobacco, alcohol use or recreational drug use. She did have a medical marijuana card for rheumatoid arthritis, but it has and she only used it a few times. She is being managed for the following: Acute CVA Acute left thalamic stroke Head CT: Ill-defined 1.7 cm hypodense focus within the left frontal lobe sapp radiata/posterior limb of the internal capsule suggestive of an age- indeterminate infarct Head/neck CTA unremarkable Brain MRI: Acute 1.2 cm left thalamic infarct Not a TNK candidate due to timing. Status post aspirin 324 in the ED. Echo with EF of 60 to 65%, grade 1 diastolic dysfunction, no inter-atrial septum defect. Mild concentric LVH. A1c 5.8, LDL 261. Patient updated 09/20, counseled regarding lifestyle modification and need to follow-up on these with PCP. Continue neurochecks. Continue DAPT for 21 days, then aspirin daily. Continue high-dose statin therapy. PT/OT/speech eval, appreciate recommendation. Might need PT upon discharge. Obtain CT head without contrast for any acute neurological decline HTN: Chronic Just diagnosed a few months ago Started on Lisinopril 10 mg daily; c/w home meds. adjust bp meds as needed. Hypothyroidism: Chronic stable Takes Synthroid; continue Depression: Chronic Takes Cymbalta; continue Rheumatoid arthritis: Chronic Follows with rheumatology outpatient and Jovani JUAREZ Does not take any DMARDs Takes vitamin D and vitamin B12; continue GERD: Chronic Takes Omeprazole;continue Was informed she may have barrets esophagus f/u w/ gi as outpatient. sleep apnea: cpap HS. Disposition: PCP: Dr. Kovacs within [facility] Code status: Full code VTE Prophylaxis: Teds and SCDs for now Admission and Anticipated Discharge Date Admission Date: September 19, 2023 Subjective Patient was seen and examined at bedside. Patient was lying in bed, on room air, not in any acute distress, resting comfortably. Patient reports improving right-sided weakness but still not confident ambulating. Patient has recorded temperature overnight, likely poststroke temperature elevation, will monitor her off of antibiotic. Otherwise hemodynamically stable. Spoke with patient's mother over the phone at bedside, answered all their questions. We discussed about A1c being in prediabetic range and need for lifestyle modification. Need for follow-up on A1c and lipid level in 2 to 3 months time. Patient reported that she has no issues with statin so far, patient has already received 2 doses of his statin. She is agreeable to continue with current dose of 40 mg daily atorvastatin, she is aware that her statin dose might need up titration or she might need further lipid lowering medication based on her lipid levels in 2 to 3 months time upon discharge. Physical Exam Physical Exam: GENERAL: Alert and oriented x3. NAD, on RA. HEENT: No pallor, no icterus. Pupils equal, round and reactive to light. Oral mucosa moist. NECK: No JVD, no neck masses. HEART: S1 and S2 heard. Regular rate and rhythm. No murmur, no gallop. RESPIRATORY SYSTEM: Normal AP diameter. No accessory muscle use. No wheezing, no crackles. ABDOMEN: Soft, bowel sounds present, nontender, no distention. CENTRAL NERVOUS SYSTEM: No facial droop. Speech is clear. Obeys simple commands. Moves extremities. Mild RLE weakness noted. EXTREMITIES: No edema, no erythema seen. Results & Data Results & Data Vital Signs (Past 12 Hours) Vital Signs Temp Pulse Pulse Resp BP Pulse Ox O2 Del Method 09/20/23 11:37 36.7 C 87 18 136/94 93 Room Air 09/20/23 09:00 77 09/20/23 08:50 36.9 C 98 H 16 152/95 H 96 Room Air 09/20/23 08:38 148/98 H 09/20/23 03:41 38.7 C H 85 17 186/99 H 98 Room Air
[2023-09-20] MEDS ORDERED: STROKE PATIENT DISCHARGE STA (16:26)
--- NOTE | 2023-09-20 16:40 | Discharge Summary ---
Date of Service September 20, 2023 Admission HPI Per Admitting Provider Ms. Miller is a 53 year old female that presented to the ED today with R sided weakness. Last known well 09/16 2200. Reports she took a CBD gummy (not unusual for her) and went to stand and could not 'find her feet' went to bed thinking it was the gummy. She went to bed and then woke again on 09/17 with the same symptoms and reports having to hold herself up to walk. Her reports that her right foot was dragging. No facial droop or speech slur. no upper extremity drift. No lower extremity drift. R leg weaker when comparing to left indicating cerebellar dysfunction. Recently Dx HTN as an outpatient and started on Lisinopril 10 mg a few months ago. She receives all of her care with the [facility] in [facility]. No history of CVA or TIA. Additional PMH includes hypothyroidism, HTN, depression, rheumatoid arthritis, GERD, cubital tunnel surgery, and right carpal tunnel. Head CT: Ill-defined 1.7 cm hypodense focus within the left frontal lobe sapp radiata/posterior limb of the internal capsule suggestive of an age- indeterminate infarct. No Leukocytosis, no lab abnormalities. She was loaded with ASA 324 here in the ED. No known family history of stroke. Father known DM2, mother with known HTN. denies tobacco, alcohol use or recreational drug use. She did have a medical marijuana card for rheumatoid arthritis, but it has and she only used it a few times. Suspect patient had an acute CVA. Will continue imaging work up with head/neck CTA, MRI brain without con, ECHO, lab work up including TSH, A1C, Fasting lipid panel, homocysteine levels, PT/OT/ST, baby aspirin daily, high dose statin and Neurology consultation. Patient will be admitted for further evaluation and management. Please see A/P for further details. Admission Exam Per Admitting Provider Neuro: AAOx4, PERRLA, no aphagia, memory changes, CNII-XII grossly intact NO facial droop or slurred speech HEENT: head normocephalic, moist mucus membranes CV: S1/S2, (-) M/G/R, (-) edema, cap refill < 3 seconds Resp: Lungs CTA in all clement. On RA GI: Abdomen S/NT/ND, Ax4 bowel sounds, (-) CVA tenderness Musculoskeletal: 5/5 B/L UE strength, 5/5 B/L LE strength. R leg weak with straight leg raises. cerebellar dysfunction with r leg dragging with walking Skin: (-) rashes , (-) erythema. Psych: euthymic mood Principal Diagnosis Acute left thalamic stroke Right side weakness Discharge Exam GENERAL: Alert and oriented x3. NAD, on RA. HEENT: No pallor, no icterus. Pupils equal, round and reactive to light. Oral mucosa moist. NECK: No JVD, no neck masses. HEART: S1 and S2 heard. Regular rate and rhythm. No murmur, no gallop. RESPIRATORY SYSTEM: Normal AP diameter. No accessory muscle use. No wheezing, no crackles. ABDOMEN: Soft, bowel sounds present, nontender, no distention. CENTRAL NERVOUS SYSTEM: No facial droop. Speech is clear. Obeys simple commands. Moves extremities. Mild RLE weakness noted. EXTREMITIES: No edema, no erythema seen. Discharge Data Allergies Allergy/AdvReac Type Severity Reaction Status Date / Time onion Allergy Abdominal Verified 09/19/23 20:04 Pain Consultations 09/19/23 12:28 ED Decision to Admit Stat 09/19/23 12:37 Consult Neurology Routine Ordered Studies 09/19/23 11:05 CT head/brain wo con Stat 09/19/23 12:08 CT angio head w con Stat CT angio neck with con Stat 09/19/23 13:49 MRI Brain [MR brain wo con] Stat Hospital Course (1) Stroke-like symptoms: (2) HTN (hypertension): (3) Hypothyroidism: (4) Depression: (5) GERD (gastroesophageal reflux disease): (6) Rheumatoid arthritis: Plan 53 year old female that presented to the ED 09/19 with R sided weakness. Last known well 09/16 2200hrs. Reports she took a CBD gummy (not unusual for her) and went to stand and could not 'find her feet' went to bed thinking it was the gummy. She went to bed and then woke again on 09/17 with the same symptoms and reports having to hold herself up to walk. Her reported that her right foot was dragging. No facial droop or speech slur. Recently Dx HTN as an outpatient and started on Lisinopril 10 mg a few months ago. She receives all of her care with the [facility] in [facility]. No history of CVA or TIA. Additional PMH includes hypothyroidism, HTN, depression, rheumatoid arthritis, GERD, cubital tunnel surgery, and right carpal tunnel. No known family history of stroke. Father known DM2, mother with known HTN. denies tobacco, alcohol use or recreational drug use. She did have a medical marijuana card for rheumatoid arthritis, but it has and she only used it a few times. She is being managed for the following: Acute CVA Acute left thalamic stroke Head CT: Ill-defined 1.7 cm hypodense focus within the left frontal lobe sapp radiata/posterior limb of the internal capsule suggestive of an age- indeterminate infarct Head/neck CTA unremarkable Brain MRI: Acute 1.2 cm left thalamic infarct Not a TNK candidate due to timing. Status post aspirin 324 in the ED. Echo with EF of 60 to 65%, grade 1 diastolic dysfunction, no inter-atrial septum defect. Mild concentric LVH. A1c 5.8, LDL 261. Patient updated 09/20, counseled regarding lifestyle modification and need to follow-up on these with PCP. Continue DAPT for 21 days, then aspirin daily. Patient advised not to take omeprazole while on Plavix, Protonix has been prescribed instead. Continue high-dose statin therapy. PT/OT/speech eval, appreciate recommendation. Patient declined prescription for cane walker. Might need PT upon discharge. Outpatient prescription for PT/OT provided. Patient later in the evening decided to go home today, and is hemodynamically stable and is being discharged. HTN: Chronic Just diagnosed a few months ago Started on Lisinopril 10 mg daily; c/w home meds. adjust bp meds as needed. Hypothyroidism: Chronic stable Takes Synthroid; continue Depression: Chronic Takes Cymbalta; continue Rheumatoid arthritis: Chronic Follows with rheumatology outpatient and [facility] Does not take any DMARDs Takes vitamin D and vitamin B12; continue GERD: Chronic Takes Omeprazole;continue with Protonix on discharge for the duration of Plavix. Was informed she may have barrets esophagus f/u w/ gi as outpatient. sleep apnea: cpap HS. Disposition: PCP: Dr. Kovacs within [facility] Code status: Full code VTE Prophylaxis: Teds and SCDs for now Patient is being discharged to home with outpatient PT/OT eval with following instruction at the point of discharge: Follow-up with your primary care physician within a week time and likely you will need labs CBC/CMP/magnesium/phosphorus. F/U w/ Neurology in 1-2 weeks time on discharge. Continue with physical therapy on discharge, you will be prescribed cane walker as well on discharge. Take aspirin and plavix daily for 21 days starting 09/20/23, then take aspirin daily. While on plavix, avoid omeprazole. F/u with you PCP office for long-term management of your elevated A1c level and lipid profile. Measure your blood pressure twice a day, maintain a log to take to your PCP office in a week time so that your BP meds can be adjusted accordingly. The BP was 132/84 at the time of discharge. Take your meds as prescribed. Please make sure that you are able to get your medications today by calling your pharmacy before you leave the hospital so that your treatment continuity is not broken. Home Health Attestation I certify that this patient is under my care and that I, or a physicians housekeeper/laundry assistant working with me, had a face to-face encounter that meets the home health [id number] encounter requirements with this patient. The encounter with the patient was in whole, or in part, for the following medical condition, which is the primary reason for home health care (list medical condition): I certify that, based on my findings, the following services are medically necessary home health services: My clinical findings support the need for the above services because: Further, I certify that my clinical findings support that this patient is homebound (i.e. absences from home require considerable and taxing effort and are for medical reasons or [employer] services or infrequently or of short duration when for other reasons) because: Certification for Home Health Services: Based on the above findings, I certify that this patient is confined to the home and needs intermittent fpc care, physical therapy and/or speech therapy or continues to need occupational therapy. The patient is under my care, and I have initiated the establishment of the plan of care. This patient will be followed by a physician who will periodically review the plan of care. Total Time Total Time Spent Total Time Spent (In Minutes): 45 Discharge Plan Discharge Items Patient Disposition: Home - Self-Care Reason For Visit: ACUTE CVA Discharge Diagnosis: Acute left thalamic stroke Right side weakness Condition on Discharge: Fair Activity: Per Instructions section Activity Comment: continue with physical therapy on discharge Non-emergency contact: Primary Care Provider Call non-emergency contact if: you have any medication questions and your symptoms worsen Follow-up/Referrals: Gerri Kovacs PA-C [Primary Care Provider] - Diet: Heart Healthy and Low Sodium (2gm) Addtl Attending Provider Instructions: Follow-up with your primary care physician within a week time and likely you will need labs CBC/CMP/magnesium/phosphorus. F/U w/ Neurology in 1-2 weeks time on discharge. Continue with physical therapy on discharge, you will be prescribed cane walker as well on discharge. Take aspirin and plavix daily for 21 days starting 09/20/23, then take aspirin daily. While on plavix, avoid omeprazole. F/u with you PCP office for long-term management of your elevated A1c level and lipid profile. Measure your blood pressure twice a day, maintain a log to take to your PCP offi ce in a week time so that your BP meds can be adjusted accordingly. The BP was 132/84 at the time of discharge. Take your meds as prescribed. Please make sure that you are able to get your medications today by calling your pharmacy before you leave the hospital so that your treatment continuity is not broken. Pending Studies at Discharge: No Stand-Alone Forms: My [facility], Smoking Cessation, Medications to Prevent Stroke Medications and DC Order Prescriptions: New clopidogrel 75 mg Tablet 75 mg PO QAM Qty: 20 0RF atorvastatin 40 mg Tablet 40 mg PO QAM Qty: 30 0RF aspirin 81 mg Tablet,Delayed Release (Dr/Ec) 81 mg PO DAILY Qty: 30 0RF pantoprazole 40 mg Tablet,Delayed Release (Dr/Ec) 40 mg PO DAILY Qty: 30 0RF Continued levothyroxine [Synthroid] 125 mcg Tablet 125 mcg PO DAILY lisinopril 10 mg Tablet 10 mg PO DAILY duloxetine [Cymbalta] 20 mg Capsule,Delayed Release(Dr/Ec) 20 mg PO BID vitamin B complex-vit B12 PO Discontinued omeprazole 20 mg Capsule,Delayed Release(Dr/Ec) 20 mg PO DAILY Discharge Orders: Discharge Order (Routine); Ordered 09/20/23 Ordered By: Andressa Man Admission Data Admit Date/Time: 09/19/23 12:37 Attending Provider: Andressa Man Admit Provider: Andressa Man Primary Care Provider: Gerri Kovacs Other Providers: Andressa Man; Husam Boyer
[2023-09-21] MEDS ORDERED: CLOPIDOGREL BISULFATE 75 MG TAB PO SCH (09:00)
--- NOTE | 2023-09-22 10:32 | Pharmacy Report ---
Pharmacist Stroke Counseling - Date of Service September 22, 2023 - Scope: Pharmacy has been consulted to provide medication discharge counseling for this patient admitted with ischemic stroke as per the Pharmacist Discharge Counseling for Stroke Patients Protocol. - Medications on Discharge: Home Medications Medication Instructions Recorded Confirmed duloxetine 20 mg capsule,delayed 20 mg PO BID 09/19/23 09/19/23 release (Cymbalta) levothyroxine 125 mcg tablet 125 mcg PO DAILY 09/19/23 09/19/23 (Synthroid) lisinopril 10 mg tablet 10 mg PO DAILY 09/19/23 09/19/23 vitamin B complex-vit B12 PO 09/19/23 New Rx's Medication Instructions Recorded aspirin 81 mg tablet,delayed 81 mg PO DAILY #30 tabs 09/20/23 release atorvastatin 40 mg tablet 40 mg PO QAM #30 tabs 09/20/23 clopidogrel 75 mg tablet 75 mg PO QAM #20 tabs 09/20/23 pantoprazole 40 mg tablet,delayed 40 mg PO DAILY #30 tabs 09/20/23 release - Action: The above medications, specifically ones for stroke treatment/prophylaxis, have been reviewed in detail with the patient prior to discharge. This includes indication, common adverse reactions, drug interactions, and medication administration. Medication counseling has been employed using the teach-back method to ensure understanding. - Outcome: The patient have demonstrated understanding of the medications. Additional comments: Spoke over the phone with patient today- she was very pleasant and receptive to counseling. Reviewed new medications to prevent stroke including Aspirin, At orvastatin, Plavix, & stopping Prilosec for Protonix. Addressed that Plavix is only for total of 21 days then stop after current prescription is done. Discussed why they are being used and common side effects in great detail. Reviewed how to use the medications, what to do if doses are missed, common drug interactions, common side effects, what to watch out for while using the medications. Pt verbalized understanding and restated the abdi points of each medication. Thank you for allowing pharmacy to be involved in the care of this patient. Please call [phone] with any additional questions
== END 2023-09-20 18:00 | disposition home or self-care (01) | DRG 65 ==
LOC: ED 09:59 → EDINP 12:37 → 2E 14:09